=== PATIENT | female | born 1950 | race American Indian/Alaskan Native ===

== ENCOUNTER 2018-12-31 14:12 | Outpatient (CLI) | payer MEDICARE ==
--- NOTE | 2018-12-31 14:55 | XRay Report ---
CHEST 2 VIEWS INDICATION: Chronic cough, wheezing. COMPARISON: None FINDINGS: Support devices: None. Heart: Within normal limits. Lungs/pleura: No acute air space or interstitial disease. No pneumothorax. A few scattered calcified granulomas are identified in both lungs. Additional findings: None. IMPRESSION: Unremarkable chest x-ray. Signer Name: Rony Garcia Jr, MD Signed: 12/31/2018 2:51 PM Workstation Name: [id number]
== END 2018-12-31 14:13 | disposition home or self-care (01) ==
LOC: SPVIMAG 14:12
PROVIDERS: ATTEND Internal Medicine
DX: R05 Cough (principal)
CPT/HCPCS: 71046

== ENCOUNTER 2019-01-21 14:40 | Outpatient (CLI) | payer MEDICARE ==
--- NOTE | 2019-01-21 15:50 | Mammography Report ---
BONE DEXA CLINICAL: Postmenopausal. TECHNIQUE: 2 site bone DEXA performed on an Hologic scanner. FINDINGS: The average BMD of the lumbar spine L1-L4 is 0.959g/cm squared with a T score of -1.7 and a Z score o f +0.3. The average total BMD of the left hip is 0.733 g/cm squared with a T score of -1.9and a Z score of -0 .9. The left femoral neck BMD is 0.578g/cm squared with a T score of -2.6 and a Z score of -1.3. IMPRESSION: 1. WHO classification: Osteopenia with increased fracture risk based on spine measurements. 2. WHO classification Osteoporosis with high fracture risk based on left femoral neck measurements. RECOMMENDATION: Clinical correlation and routine screening. Definitions: BMD equal bone mineral density T score = BMD related to peak bone mass of young adult ([place] expressed an standard deviation) Z score = age-matched BMD expressed in SD World health organization (WHO) diagnostic criteria Normal T score greater than equal to 1 standard deviation Osteopenia T score between -1 and -2.4 standard deviation Osteoporosis T score -2.5 standard deviation or below. Note: BMD is not the only risk factor for fracture; also consider factors such as the patient's age, risk of falling, previous osteoporotic fracture, family history of osteoporotic fractures, current sm oker and low body weight. Z scores are not calculated if greater than 80 years of age. Signer Name: Otto Parson MD Signed: 01/21/2019 3:45 PM Workstation Name: [id number]
== END 2019-01-21 14:41 | disposition home or self-care (01) ==
LOC: SPVWC 14:40
PROVIDERS: ATTEND Internal Medicine
DX: Z13.820 Encounter for screening for osteoporosis (principal); M81.0 Age-related osteoporosis without current pathological fracture; M85.88 Other specified disorders of bone density and structure, other site; Z78.0 Asymptomatic menopausal state
CPT/HCPCS: 77080